=== PATIENT | male | born 1965 | race Caucasian/White ===

== ENCOUNTER → 2020-11-14 | Day surgery (SDC) | payer BC ==
[~2020-11-14] MED LIST: FENTANYL CITRATE/PF 100MCG/2 ML INJ ONE; LIDOCAINE HCL 2% LOCAL INJ 5 ML SDV VIAL INJ ONE; MIDAZOLAM HCL 2 MG/2 ML VIAL ONE; OMEPRAZOLE40 MG PO; PROPOFOL IV EMULSION 10 MG/ML 20 ML VIAL ONE; SYMBICORT 16010.2 GM INH
[2020-11-14 07:40] VITALS: BP 111/55
== END | disposition home or self-care (01) ==
LOC: OR 05:38
PROVIDERS: ATTEND Surgery
DX: K57.32 Diverticulitis of large intestine without perforation or abscess without bleeding (principal); Z86.010 Personal history of colon polyps; Z93.3 Colostomy status; Z90.49 Acquired absence of other specified parts of digestive tract; K65.9 Peritonitis, unspecified; Z88.1 Allergy status to other antibiotic agents; J42 Unspecified chronic bronchitis; K21.9 Gastro-esophageal reflux disease without esophagitis; Z01.810 Encounter for preprocedural cardiovascular examination; Z01.812 Encounter for preprocedural laboratory examination; Z20.822 Contact with and (suspected) exposure to COVID-19
CPT/HCPCS: 45378; 93005; J2001; J2250; J2704; J3010; U0002 ×2